=== PATIENT | female | born 1975 | race Two or more races ===

== ENCOUNTER 2024-05-06 05:11 | Emergency (ER) | payer MEDICAID, SELFPAY ==
[2024-05-06 05:12] VITALS: BMI 29.9
[2024-05-06 05:27] VITALS: BP 138/76; PULSE 132; RESP 18; TEMP 38.4; O2SAT 95
--- NOTE | 2024-05-06 05:42 | PD.EDRME ---
Rapid Medical Screening Exam [facility] Arrival date/time: 05/06/24 05:11 48F wit history of migraines presents to ED with 2 days of cough, fevers/chills, and FAUST. Chief Complaint: Headache Vital signs: Vital Signs Temperature 101.1 F H 05/06/24 05:27 Pulse Rate 132 H 05/06/24 05:27 Respiratory Rate 18 05/06/24 05:27 Blood Pressure 138/76 H 05/06/24 05:27 Pulse Oximetry (%) 95 05/06/24 05:27 Oxygen Delivery Method Room Air 05/06/24 05:27
[2024-05-06 05:48] VITALS: TEMP 38.4
[2024-05-06] MEDS: ACETAMINOPHEN 500 MG TABLET 1000 MG PO (05:48)
[2024-05-06] MEDS: METOCLOPRAMIDE 5 MG TABLET 10 MG PO (05:49)
[2024-05-06] MEDS: SUMAtriptan INJ 6 MG/0.5 ML VIAL SC (05:49)
[2024-05-06 06:22] VITALS: PULSE 113; RESP 18; TEMP 37.9; O2SAT 95
--- NOTE | 2024-05-06 07:17 | EDNOTE_ITS ---
<Statement entered by Katty Llanes MD - 05/07/24 06:48> As co-signing physician, I was present and available for consult prn. I concur with the plan and care as documented by the midlevel provider. ED Headache RME/HPI General Chief Complaint: Headache Stated Complaint: HEADACHE X 2DAYS Time Seen by Provider: 05/06/24 06:14 Arrival date/time: 05/06/24 05:11 RME / HPI RME / HPI Narrative: 05/06/24 05:11 48F wit history of migraines presents to ED with 2 days of cough, fevers/chills, and FAUST. Patient denies sick contacts or recent travel. Patient denies any alleviating or aggravating factors. Related Data Home Medications ?Medication ?Instructions ?Recorded ?Confirmed levothyroxine 75 mcg tablet 75 mcg PO DAILY ##0 01/09/13 02/19/22 (Synthroid) albuterol sulfate 90 mcg/actuation 2 puff inhalation Q6HR PRN 07/09/15 02/19/22 aerosol inhaler (ProAir HFA) SHORTNESS OF BREATH OR WHEEZE #0 inhalations tizanidine 4 mg tablet (Zanaflex) 8 mg PO HS #0 tabs 07/09/15 02/19/22 fluticasone furoate 100 1 inh inhalation Q24H 10/26/19 02/19/22 mcg/actuation blister powder for inhalation (Arnuity Ellipta) melatonin 10 mg tablet 10 mg PO HS 10/26/19 02/19/22 Previous Rx's ?Medication ?Instructions ?Recorded hydrocodone 7.5 mg-acetaminophen 1 tab PO Q6H PRN pain #30 tabs 10/07/17 325 mg tablet ([place]) oseltamivir 75 mg capsule (Tamiflu) 75 mg PO BID 5 days #10 caps 05/06/24 Allergies Allergy/AdvReac Type Severity Reaction Status Date / Time [facility] Allergy Severe Hives Verified 10/11/22 09:43 theophylline AdvReac Severe SOB,FAUST,WEAK Verified 10/11/22 09:43 NESS Review of Systems Review of Systems Systems Reviewed: All systems reviewed, normal except as documented Constitutional Constitutional: Reports system reviewed and no additional complaints, except as documented Cardiovascular Cardiovascular: Reports system reviewed and no additional complaints, except as documented Respiratory Respiratory: Reports system reviewed and no additional complaints, except as documented Gastrointestinal Gastrointestinal: Reports system reviewed and no additional complaints, except as documented Musculoskeletal Musculoskeletal: Reports system reviewed and no additional complaints, except as documented Neurologic Neurologic: Reports system reviewed and no additional complaints, except as documented ED Exam General General appearance: Present alert and in no apparent distress Head Head exam: Present atraumatic and normocephalic ENT ENT exam: Present normal exam and normal oropharynx Chest Chest inspection: Present normal inspection and symmetric chest wall rise Respiratory Respiratory exam: Present normal lung sounds bilaterally Cardiovascular Cardiovascular exam: Present regular rate and normal rhythm Extremities Exam Extremities exam: Present normal inspection and full ROM Neurological Exam Neurological exam: Present alert and oriented X3 Course Quality Measures none Orders Category Date Time Status Acetaminophen Tab [Tylenol ES Tab] Med 05/06/24 05:40 Discontinued 1,000 mg PO X1 ONE Metoclopramide [Reglan] Med 05/06/24 05:40 Discontinued 10 mg PO X1 ONE SUMAtriptan INJ [Imitrex Inj] Med 05/06/24 05:40 Discontinued 6 mg SC X1 ONE Vital Signs Vital signs: Vital Signs Temperature 101.1 F H 05/06/24 05:27 Pulse Rate 132 H 05/06/24 05:27 Respiratory Rate 18 05/06/24 05:27 Blood Pressure 138/76 H 05/06/24 05:27 Pulse Oximetry (%) 95 05/06/24 05:27 Oxygen Delivery Method Room Air 05/06/24 05:27 Headache MDM Narrative MDM Narrative:: 48-year-old patient presents emergency department with complaints of headache labs indicate influenza A patient received relieved with medications in the emergency department patient is stable to [place] home patient was not tachycardic or febrile prior to d/c Patient data External records reviewed:: None Clinical information provided by:: patient Social determinants that could affect healthcare access:: none Patient has the following chronic illnesses:: na How is presenting disease/condition affected by chronic disease/condition?: no chronic disease Evaluation data The following diagnostics were reviewed and interpreted by me:: other (specify) (na) Lab and/or radiology exams considered but not ordered:: na Interpretation Summary: na Medications / Prescriptions Medications or Prescriptions considered but not ordered:: meds considered and ordered Medication administrations:: Medication Administration History Discontinued Medications Acetaminophen (Acetaminophen 500 Mg Tablet) 1,000 mg PO X1 ONE Stop: 05/06/24 05:41 Last Admin: 05/06/24 05:48 Dose: 1,000 mg Documented By: VAHID Metoclopramide HCl (Metoclopramide 5 Mg Tablet) 10 mg PO X1 ONE Stop: 05/06/24 05:41 Last Admin: 05/06/24 05:49 Dose: 10 mg Documented By: VAHID Sumatriptan Succinate (Sumatriptan Inj 6 Mg/0.5 Ml Vial) 6 mg SC X1 ONE Stop: 05/06/24 05:41 Last Admin: 05/06/24 05:49 Dose: 6 mg Documented By: VAHID per above Consultations Consultation(s) initiated? (list below): No Diagnosis Differential diagnosis headache: migraine, tension headache and other (influenza A) Most likely diagnosis given after review of the tests above:: influenza A Admission Indicated Admission indicated?: not indicated Admission Request Was there a request for admission?: No Disposition Plan Disposition Plan: Discharge Discharge Attestation Discharge Attestation: The patient and all family members were given an opportunity to ask questions and understood the discharge instructions. Discharge instructions specifically effects, indications for sooner follow up or return to the emergency department, and the expected course of current diagnosis. Patient condition: Stable Discharge Plan Plan Patient Disposition: HOME (Self Care) Prescriptions/Referrals Prescriptions/Med Rec: New oseltamivir [Tamiflu] 75 mg capsule 75 mg PO BID 5 Days Qty: 10 0RF No Action levothyroxine [Synthroid] 75 MCG tablet 75 mcg PO DAILY Qty: 0 tizanidine [Zanaflex] 4 MG tablet 8 mg PO HS Qty: 0 albuterol sulfate [ProAir HFA] 8.5 GM HFA aerosol inhaler 2 puff Inhalation Q6HR PRN (Reason: SHORTNESS OF BREATH OR WHEEZE) Qty: 0 hydrocodone-acetaminophen [[place]] 7.5-325 mg tablet 1 tab PO Q6H MDD 4 PRN (Reason: pain) Qty: 30 0RF Hold Instructions: Resume on 02/20/22. melatonin 10 mg Tablet 10 mg PO HS Hold Instructions: Resume on 02/20/22. Arnuity Ellipta 100 mcg/actuation Blister With Device 1 inh INHALATION Q24H Referrals: Temporary Provider,ED [Physician] - In 1 week Problem List Clinical Impression: Influenza A Patient/Caregiver Discharge Instructions Education Materials: ED Influenza (Adult) Print Language: Uzbek Stand Alone Forms: Tamara Award Info., Patient Portal Info Letter
== END 2024-05-06 07:34 | disposition home or self-care (01) ==
LOC: SERX 07:27
PROVIDERS: Emergency Provider Emergency Medicine; PCP Emergency Medicine
DX: J10.1 Influenza due to other identified influenza virus with other respiratory manifestations (principal)
CPT/HCPCS: 96372; 99283; J3030; A9270

== ENCOUNTER → 2024-06-10 | Outpatient (CLI) | payer MEDICAID, SELFPAY ==
--- NOTE | 2024-06-10 | XR_ITS ---
Examination: Screening digital mammography, bilateral Computer aided detection 3-D breast Tomosynthesis, bilateral Date and time of exam: June 10, 2024 1446 hours Compared to mammograms dating to July 15, 2018 Indication: Screening Technique: Nonmagnified MLO, CC views of the breasts to been obtained, reconstructed from 3-D Tomosynthesis images. R2 computer aided detection program utilized for evaluation of suspicious masses and/or abnormal calcifications. 3-D Tomosynthesis images obtained. Findings: The breasts are heterogeneously dense, which may obscure small masses Stable focal asymmetry outer left breast. Benign calcifications. No interval suspicious masses Impression: BI-RADS category II: Benign Findings. Recommend 1 year follow-up mammogram.
--- NOTE | 2024-06-10 13:30 | XR_ITS ---
Examination: Breast ultrasound complete, bilateral Date and time of exam: June 10, 2024 1411 hours INDICATIONS: Bilateral breast sonography because of dense breast architecture on mammography, screening study Technique: Real-time grayscale ultrasonographic imaging bilateral breasts, including all 4 quadrants as well as nipple retroareolar and axillary regions. Findings: Sonographic images right breast No cystic or solid mass Sonographic images left breast 5:00 cyst 3 x 4 mm No solid nodules IMPRESSION: BI-RADS Category 2: Benign findings
== END | disposition home or self-care (01) ==
PROVIDERS: PCP Emergency Medicine; Referring Provider Specialist; Visit Provider Specialist
DX: Z12.31 Encounter for screening mammogram for malignant neoplasm of breast (principal); R92.323 Mammographic fibroglandular density, bilateral breasts; R92.1 Mammographic calcification found on diagnostic imaging of breast; N60.19 Diffuse cystic mastopathy of unspecified breast
CPT/HCPCS: 76641; 77063; 77067